=== PATIENT | male | born 1965 | race Caucasian/White ===

== ENCOUNTER 2020-08-31 11:12 | Outpatient (NON) | payer OTHER, SELFPAY ==
[2020-08-31 23:33] LABS: SARS-CoV-2 RNA PCR Negative
== END 2020-08-31 11:13 ==
LOC: ANHCOVIDDT 11:13
PROVIDERS: PCP Family Medicine; Visit Provider Family Medicine
DX: R68.89 Other general symptoms and signs (principal); Z20.822 Contact with and (suspected) exposure to COVID-19
CPT/HCPCS: C9803; U0003

== ENCOUNTER 2020-09-22 10:54 | Outpatient (CLI) | payer OTHER, SELFPAY ==
--- NOTE | ~2020-09-22 | CT_ITS ---
EXAMINATION:CT lung screening DATE: 09/22/2020 11:47 INDICATION: Personal history of tobacco dependence. Smoker who quit 1 year ago with 70 pack year hist ory. TECHNIQUE: Computed tomography (CT) of the chest was performed without intravenous contrast. Automate d exposure control and iterative reconstruction technique were employed. The dose-length product (DLP ) was 134.08 mGy-cm. COMPARISON: None. FINDINGS: There is mild emphysema. There is symmetric scarring at the lung apices. There is periphera l septal thickening in the upper lungs, likely chronic. There is a 12 mm groundglass opacity in left lower lobe. A calcified left lung nodule and calcified left hilar and mediastinal lymph nodes are con sistent with old granulomatous disease. No pleural effusion. The heart size is normal. There are jl nary artery calcifications. No pericardial effusion. There is mild thoracic spondylosis. IMPRESSION: 1. Lung-RADS category 2: Benign appearance or behavior. Continue annual screening with noncontrast lo w-dose chest CT in 12 months. Reviewed, dictated and finalized at location A. [facility] [employer] IMPRESSION: 1. Lung-RADS category 2: Benign appearance or behavior. Continue annual screeni ng with noncontrast low-dose chest CT in 12 months.
== END 2020-09-22 10:55 | disposition home or self-care (01) ==
PROVIDERS: Family Provider Family Medicine; PCP Family Medicine; Visit Provider Nurse Practitioner Family
DX: Z12.2 Encounter for screening for malignant neoplasm of respiratory organs (principal); Z87.891 Personal history of nicotine dependence
CPT/HCPCS: 71271